=== PATIENT | male | born 1965 | race Asian ===

== ENCOUNTER 2024-10-20 03:09 | Emergency (ER) | payer MEDICAID ==
[~2024-10-20] VITALS: Ht 185.4 cm; Wt 73.0 kg
[2024-10-20 03:14] VITALS: TEMP 36.4; O2SAT 98
[2024-10-20] MEDS ORDERED: BENZ200C52 MT (04:58)
[2024-10-20 05:16] VITALS: BP 131/73; PULSE 95; RESP 18; O2SAT 96
== END 2024-10-20 05:17 | disposition home or self-care (01) ==
LOC: ER 03:09
DX: R05.9 Cough, unspecified (principal); I95.89 Other hypotension
CPT/HCPCS: 71045; 99283